=== PATIENT | male | born 1950 | race Caucasian/White ===

== ENCOUNTER 2020-07-25 16:42 | Emergency (ER) | payer OTHER ==
[~2020-07-25] VITALS: Ht 172.7 cm; Wt 90.7 kg
[2020-07-25] MEDS ORDERED: PREDNISONE20 MG ORAL (16:49)
[2020-07-25] MEDS ORDERED: VENTOLIN HFA18 GM INH (16:49)
--- NOTE | 2020-07-25 17:07 | Emergency Room Report ---
History of Present Illness General Chief Complaint: Asthma Source: Patient Present Illness HPI Disclaimer: Please note that this report is being documented using [employer] technology. This can lead to erroneous entry secondary to incorrect interpretation by the dictating instrument. HPI: 70-year-old male history of asthma chronic steroids presents for evaluation of back and rib pain and difficulty breathing. 4 days ago the patient had a mechanical fall slipping on a rug falling onto a landing approximately 2 or 3 steps. Primary intact lower back and then upper back. He was reporting significant right-sided rib pain especially with deep inspiration, movement of the arms, coughing. Difficulty sleeping at night secondary to pain. Denies numbness, tingling, weakness. Ambulating at baseline. Denies urinary tension or fecal incontinence. No other injury reported. No head injury, no loss of consciousness, denies headaches or changes in vision. Does not take anticoagulants. PMH: Asthma PSH: Reviewed Allergies: Denied Social Hx: Denied Allergies: Coded Allergies: No Known Allergies (Unverified , 07/25/20) COVID-19 Screening Contact w/high risk pt: No Experienced COVID-19 symptoms?: Yes COVID-19 Testing performed MACHINE RIVETER: No Nursing Documentation-PMH Past Medical History: No History, Except For Hx Hypertension: Yes Hx Asthma: Yes Review of Systems All Other Systems: negative except mentioned in HPI Physical Exam Vital Signs Date Time Temp Pulse Resp B/P (MAP) Pulse Ox O2 Delivery O2 Flow Rate FiO2 07/25/20 16:46 97.9 71 19 147/92 (110) 93 Room Air General: Awake and alert, no acute distress HEENT: Normocephalic, atraumatic. There are no scalp or face hematomas, lacerations or abrasions. No tenderness or soft tissue swelling over the facial bones. EOMI. PERRLA. No septal hematoma. No oral lacerations. Dentition is intact. No malocclusion Neck: Supple, trachea midline. Arrives without cervical collar Chest Wall: There is tenderness palpation of the mid axillary line and mid scapular line lower ribs on the right side without overlying crepitus. CV: RRR. S1 and S2 normal. No murmur appreciated Resp: Normal work of breathing. Audible wheezing. Restricted air movement bilaterally. No crackles. No cough during exam. Abd: Soft, nontender, nondistended Skin: Intact. No abrasions, laceration or rash over the exposed skin MSK: Normal tone and bulk. No obvious deformity. Moving all extremities. Ambulating without difficulty. Neuro: Awake and alert. Mentating appropriately. Sensation is intact to light touch over the dermatomes of the upper and lower extremities Spine: Tenderness palpation of lower cervical and upper thoracic spine in the midline without palpable deformity. Moderate tenderness in the midline in the lumbar spine again without deformity. Moderate paraspinal tenderness particularly extending over the left trapezius Medical Decision Making Diagnostic Impression: Primary Impression: Asthma exacerbation Additional Impressions: Compression fracture of spine Fracture of ribs, seven ER Course Is a 70-year-old male presenting for evaluation of back and rib pain after a fall 4 days ago as well as difficulty breathing. Recently increased from 40 mg to 60 mg prednisone. He is on chronic steroids and therefore risk of fracture increase. CT scan of the cervical, thoracic and lumbar spine as well as the chest wall was ordered. Scans identified an acute nondisplaced fracture of the seventh rib, posterior, right side. This would account for the patient's pain. Also age-indeterminate superior endplate fractures at T1, T3, T7 and T12. No other injuries identified. No infiltrate, patient is COVID-19 negative according to rapid test. He received breathing treatments for his asthma and continues on steroids. Patient be discharged home with outpatient follow-up. Instructed to return with new or worsening symptoms. He understands and agrees with the treatment plan. Microbiology Date/Time Source Procedure Growth Status 07/25/20 17:19 Nasopharynx SARS-CoV-2 RdRp Gene Assay - Final Complete CT/MRI/US Diagnostic Results CT/MRI/US Diagnostic Results : Impression IMPRESSION: 1. Nondisplaced acute fracture of the right posterior seventh rib. 2. Age indeterminate superior endplate depressions of the T1, T3, T7, and T12 vertebral bodies. 3. No significant pleural effusion. No pneumothorax. 4. No acute pulmonary parenchymal abnormality identified. Dictated By: Cindy Mott MD Electronically Signed By:Cindy Mott MD Signed Date/Time 07/25/20 180 Last Vital Signs Date Time Temp Pulse Resp B/P (MAP) Pulse Ox O2 Delivery O2 Flow Rate FiO2 07/25/20 16:46 97.9 71 19 147/92 (110) 93 Room Air Disposition: HOME, SELF-CARE Condition: Stable Scripts Hydrocodone Bit/Acetaminophen 5-325* (NORCO 5-325 TABLET*) 1 Each Tablet 1 TAB ORAL Q6H PRN for FOR PAIN, #15 TAB 0 Refills Prov: Tito Estrella MD 07/25/20 Ibuprofen* (MOTRIN*) 600 Mg Tablet 600 MG ORAL Q6H PRN for For Pain, #30 TAB 0 Refills Prov: Tito Estrella MD 07/25/20 Methocarbamol* (ROBAXIN-750*) 750 Mg Tablet 750 MG PO QID, #28 TAB 0 Refills Prov: Tito Estrella MD 07/25/20 Lidocaine Patch* (Lidoderm Patch*) 1 Each Adh..patch 1 PATCH TOPIC DAILY, #30 PATCH Patch(es) may remain in place for up to 12 hours in any 24-hour period. Prov: Tito Estrella MD 07/25/20 Tito Estrella MD Jul 25, 2020 17:07
[2020-07-25] MEDS: Albuterol/Ipratropium 3ml neb HHN SCH ×3 (17:15→17:41)
--- NOTE | 2020-07-25 17:25 | NUR ---
ED Nurse Note:pt. came from home with c/o SOB and asthma exacerbation, ambulatory VSS, covid swab sent to labs
--- NOTE | 2020-07-25 17:38 | NUR ---
ED Nurse Note:pt. had CT done
[2020-07-25 17:40] VITALS: BP 147/92
--- NOTE | 2020-07-25 17:59 | Diagnostic Imaging Report ---
EXAM: CT Cervical Spine Without Intravenous Contrast CLINICAL HISTORY: INJ TECHNIQUE: Axial computed tomography images of the cervical spine without intravenous contrast. CTDI is 20.2 mGy and DLP is 478.8 mGy-cm. One or more of the following dose reduction techniques were used: automated exposure control, adjustment of the mA and/or kV according to patient size, use of iterative reconstruction technique. COMPARISON: None FINDINGS: Bones: Normal alignment. No acute fracture or bony lesion in the cervical spine. Age-indeterminate mild superior endplate depression in the T1 vertebral body. Disc spaces: No subluxation. Degenerative changes of the spine. Soft tissues: Normal. Other: Tonsilliths noted. IMPRESSION: No acute fracture or bony lesion in the cervical spine. Age- indeterminate mild superior endplate depression in the T1 vertebral body.
--- NOTE | 2020-07-25 18:09 | Diagnostic Imaging Report ---
EXAM: CT Chest Without Intravenous Contrast CLINICAL HISTORY: INJ TECHNIQUE: Axial computed tomography images of the chest without intravenous contrast. CTDI is 10.8 mGy and DLP is 663.4 mGy-cm. One or more of the following dose reduction techniques were used: automated exposure control, adjustment of the mA and/or kV according to patient size, use of iterative reconstruction technique. COMPARISON: None FINDINGS: Lungs: Unremarkable. No mass. No consolidation. Pleural space: Unremarkable. No pneumothorax. No significant effusion. Heart: Unremarkable. No cardiomegaly. No significant pericardial effusion. Bones/joints: Nondisplaced acute fracture of the right posterior seventh rib. Age indeterminate superior endplate depressions of the T1, T3, T7, and T12 vertebral bodies. Subacute or chronic fracture of the left posterolateral 11th rib. No dislocation. Soft tissues: Unremarkable. Vasculature: Unremarkable. No thoracic aortic aneurysm. Lymph nodes: Unremarkable. No enlarged lymph nodes. IMPRESSION: 1. Nondisplaced acute fracture of the right posterior seventh rib. 2. Age indeterminate superior endplate depressions of the T1, T3, T7, and T12 vertebral bodies. 3. No significant pleural effusion. No pneumothorax. 4. No acute pulmonary parenchymal abnormality identified.
[2020-07-25] MEDS ORDERED: ROBAXIN-750750 MG PO (18:20)
[2020-07-25] MEDS ORDERED: IBUPROFEN600 M1 ORAL (18:20)
[2020-07-25] MEDS ORDERED: NORCO 5-325 TA1 EAC1 ORAL (18:20)
[2020-07-25] MEDS ORDERED: LIDODERM700 M1 TOPIC (18:20)
--- NOTE | 2020-07-25 18:31 | Diagnostic Imaging Report ---
EXAM: CT Thoracic Spine Without Intravenous Contrast CLINICAL HISTORY: INJ TECHNIQUE: Axial computed tomography images of the thoracic spine without intravenous contrast. CTDI is 10.8 mGy and DLP is 663.4 mGy-cm. One or more of the following dose reduction techniques were used: automated exposure control, adjustment of the mA and/or kV according to patient size, use of iterative reconstruction technique. COMPARISON: None FINDINGS: Bones: Age indeterminate mild superior endplate compression deformities of the T1, T3, T7, and T12 vertebral bodies. The T12 vertebral body superior endplate depression appears probably acute or subacute. Disc spaces: No subluxation. Degenerative changes of the spine. Evaluation of spinal canal contents could be performed with MRI if clinically indicated. Possible mild spinal canal stenosis at C7-T1. Soft tissues: Normal. Other: Normal. IMPRESSION: Age indeterminate mild superior endplate compression deformities of the T1, T3, T7, and T12 vertebral bodies. The T12 vertebral body superior endplate depression appears probably acute or subacute.
--- NOTE | 2020-07-25 18:36 | Diagnostic Imaging Report ---
EXAM: CT Lumbar Spine Without Intravenous Contrast CLINICAL HISTORY: INJ TECHNIQUE: Axial computed tomography images of the lumbar spine without intravenous contrast. CTDI is 10.8 mGy and DLP is 663.4 mGy-cm. One or more of the following dose reduction techniques were used: automated exposure control, adjustment of the mA and/or kV according to patient size, use of iterative reconstruction technique. COMPARISON: None FINDINGS: Bones: Age indeterminate mild superior endplate depression of the L5 vertebral body. Superior endplate depression of the T12 vertebral body appears acute or subacute. Disc spaces: Degenerative changes of the spine. Borderline spinal canal stenosis at L2-3. Mild spinal canal stenosis at L3-4 and L4-5. Mild bilateral neural foraminal stenoses at L1-2 and L2-3. Moderate bilateral neural foraminal stenoses at L3-4 and L4-5. Moderate to severe neural foraminal stenoses at L5-S1. Soft tissues: Normal. IMPRESSION: Age indeterminate mild superior endplate depression of the L5 vertebral body. Superior endplate depression of the T12 vertebral body appears acute or subacute.
[2020-07-25 18:54] VITALS: BP 141/88
[2020-07-25 18:55] VITALS: BP 141/88
--- NOTE | 2020-07-25 18:55 | NUR ---
ED Nurse Note: Pt cleared by health care Provider for discharge. DC instructions/prescription was given and explained to pt and verbalized understanding of teachings. All medical deviecs such as ID band removed. Pt is AAO x4, ambulatory and left with all personal belongings.
== END 2020-07-25 18:56 | disposition home or self-care (01) ==
LOC: EMR 17:14
DX: J45.901 Unspecified asthma with (acute) exacerbation (principal); S22.31XA Fracture of one rib, right side, initial encounter for closed fracture; S29.8XXA Other specified injuries of thorax, initial encounter; W01.0XXA Fall on same level from slipping, tripping and stumbling without subsequent striking against object, initial encounter; Y92.9 Unspecified place or not applicable; M54.5 Low back pain; M54.6 Pain in thoracic spine; I10 Essential (primary) hypertension; M48.061 Spinal stenosis, lumbar region without neurogenic claudication
CPT/HCPCS: 71250; 72125; 72128; 72131; 94640; U0002; Z7502; 99284; J7620